=== PATIENT | male | born 1975 | race Caucasian/White ===

== ENCOUNTER 2017-01-28 19:10 | Emergency (ER) | payer OTHER, MEDICAID ==
[2017-01-28 19:21] VITALS: BP 155/102
== END 2017-01-28 20:50 | disposition home or self-care (01) ==
LOC: ED 19:10
DX: J06.9 Acute upper respiratory infection, unspecified (principal); R03.0 Elevated blood-pressure reading, without diagnosis of hypertension
CPT/HCPCS: J7512; J7613